=== PATIENT | male | born 1975 | race Two or more races ===

== ENCOUNTER 2016-10-11 16:04 | Emergency (ER) | payer SELFPAY ==
[2016-10-11 16:11] VITALS: BP 120/80; PULSE 96; TEMP 98.9; BMI 23.6
[2016-10-11] MEDS ORDERED: KETOROLAC TROMETHAMINE 30 MG/1 ML VIAL IM ONE (16:32)
--- NOTE | 2016-10-11 16:38 | PDOC ---
History of Present Illness - General Chief Complaint: Pain Stated Complaint: PAIN Time Seen by Provider: 10/11/16 16:26 History Source: Patient Exam Limitations: No Limitations - History of Present Illness Initial Comments: 10/11/16 16:33 41 yr male c/o right hip to right thigh and knee pain for 3 weeks. Pt denies injury states pain worse with getting onto and off the back of the [employer] truck. Pt denies back pain, neg abd pain. neg nvd neg urinary or bowel complaints. Past History - Past Medical History Allergies/Adverse Reactions: Allergies Allergy/AdvReac Type Severity Reaction Status Date / Time No Known Allergies Allergy Verified 10/11/16 16:08 Home Medications: Ambulatory Orders Naproxen [Naprosyn -] 500 mg PO BID PRN #14 tablet 10/11/16 Other medical history: none - Immunization History Immunization Up to Date: Yes - Psycho/Social/Smoking Cessation Hx Anxiety: No Suicidal Ideation: No Smoking History: Current every day smoker Have you smoked in the past 12 months: Yes Number of Cigarettes Smoked Daily: 8 Information on smoking cessation initiated: Yes 'Breaking Loose' booklet given: 10/11/16 Hx Alcohol Use: Yes Drug/Substance Use Hx: Yes Substance Use Type: Alcohol *Physical Exam - Vital Signs Last Vital Signs Temp Pulse Resp BP Pulse Ox 98.9 F 96 H 16 120/80 100 10/11/16 16:08 10/11/16 16:08 10/11/16 16:08 10/11/16 16:08 10/11/16 16:08 - Physical Exam General Appearance: Yes: Nourished, Appropriately Dressed HEENT: positive: EOMI, YAS Neck: positive: Supple Respiratory/Chest: positive: Lungs Clear, Normal Breath Sounds Cardiovascular: positive: Regular Rhythm, Regular Rate Gastrointestinal/Abdominal: positive: Normal Bowel Sounds, Soft. negative: Tender Musculoskeletal: positive: Normal Inspection Extremity: positive: Normal Capillary Refill, Normal Inspection, Normal Range of Motion, Other (pain repordiced with right hip abduction and flexion, ttp right patella, no swelling or deformity ) Integumentary: positive: Normal Color, Dry, Warm Neurologic: positive: Fully Oriented, Alert, Normal Mood/Affect, Normal Response , Motor Strength 5/5 ED Treatment Course - RADIOLOGY Radiology Studies Ordered: Category Date Time Status HIP & PELVIS-RIGHT [RAD] Stat Radiology 10/11/16 16:32 Ordered KNEE 3 POS-RIGHT [RAD] Stat Radiology 10/11/16 16:32 Ordered Medical Decision Making - Medical Decision Making 10/11/16 16:35 cc: pain to right hip, thigh and knee for 3 weeks neg abd pain neg back pain, neg saddle anesthesia pain reproduced with right hip abduction and flexion will get xrays toradol for pain *DC/Admit/Observation/Transfer Diagnosis at time of Disposition: Hip pain, right - Discharge Dispostion Disposition: HOME Condition at time of disposition: Good - Prescriptions Prescriptions: Naproxen [Naprosyn -] 500 mg PO BID PRN #14 tablet PRN Reason: Pain - Referrals Referrals: Heriberto Haddad MD [Staff Physician] - [facility] [Provider Group] - Patient Instructions Additional Instructions: follow with the orthopedist for follow up, call tomorrow to set up appointment for this week or next week take naprosyn for pain as directed avoid heavy lifting or bending which may worsen your pain return to ER for any worsening symptoms also follow with [facility] for a primary care doctor
[2016-10-11] MEDS ORDERED: KETOROLAC TROMETHAMINE 30 MG/1 ML VIAL ONE (16:46)
== END 2016-10-11 17:34 | disposition home or self-care (01) ==
LOC: JERFT 16:04
PROC: 3E0233Z Introduction of Anti-inflammatory into Muscle, Percutaneous Approach (ICD-10-PCS; principal; 2016-10-11)
DX: M25.551 Pain in right hip (principal); F17.210 Nicotine dependence, cigarettes, uncomplicated
CPT/HCPCS: 73523-TC; 73562-TC-RT; 99281-25

== ENCOUNTER 2017-03-14 12:42 | Emergency (ER) | payer BC ==
[2017-03-14 13:04] VITALS: BP 126/86; PULSE 106; TEMP 98.3; BMI 24.3
--- NOTE | 2017-03-14 15:35 | PDOC ---
History of Present Illness - General Chief Complaint: Pain Stated Complaint: RT SIDE PAIN Time Seen by Provider: 03/14/17 15:34 Past History - Past Medical History Allergies/Adverse Reactions: Allergies Allergy/AdvReac Type Severity Reaction Status Date / Time No Known Allergies Allergy Verified 03/14/17 13:01 Home Medications: Ambulatory Orders Cyclobenzaprine HCl [Flexeril -] 10 mg PO HS #10 tablet 03/14/17 Ibuprofen 800 mg PO TID #30 tablet 03/14/17 COPD: No - Immunization History Immunization Up to Date: Yes - Suicide/Smoking/Psychosocial Hx Smoking History: Current every day smoker Have you smoked in the past 12 months: Yes Number of Cigarettes Smoked Daily: 8 Information on smoking cessation initiated: Yes 'Breaking Loose' booklet given: 03/14/17 Hx Alcohol Use: No Drug/Substance Use Hx: No Substance Use Type: Alcohol *Physical Exam - Vital Signs Last Vital Signs Temp Pulse Resp BP Pulse Ox 98.3 F 106 H 18 126/86 100 03/14/17 13:01 03/14/17 13:01 03/14/17 13:01 03/14/17 13:01 03/14/17 13:01 *DC/Admit/Observation/Transfer Diagnosis at time of Disposition: Leg pain, right Sciatica Qualifiers: Laterality: right Qualified Code(s): M54.31 - Sciatica, right side - Discharge Dispostion Disposition: HOME Condition at time of disposition: Good Admit: No - Referrals Referrals: Michael Hansen MD [Staff Physician] - - Patient Instructions Printed Discharge Instructions: DI for Sciatica Additional Instructions: You have sciatica. Please take 800 mg of ibuprofen 3 times a day to help with her pain. Please take this medication with food. Your also prescribed Flexeril. Please take this medication at night as it may make you sleepy. Do gentle stretching exercises of your leg and back to help with her pain. You may use heat to the affected area. Please follow-up with or so this week. Return to the emergency department if you have worsening pain, changes in the way walk, loss of bladder or bowel control, numbness and tingling, or any changes in your symptoms. - Post Discharge Activity Forms/Work/School Notes: Back to Work
[2017-03-14] MEDS ORDERED: KETOROLAC TROMETHAMINE 60 MG/2 ML VIAL IM ONE (15:51)
[2017-03-14] MEDS ORDERED: KETOROLAC TROMETHAMINE 60 MG/2 ML VIAL ONE (15:55)
== END 2017-03-14 16:16 | disposition home or self-care (01) ==
LOC: JERFT 12:42
PROC: 3E0233Z Introduction of Anti-inflammatory into Muscle, Percutaneous Approach (ICD-10-PCS; principal; 2017-03-14)
DX: M54.31 Sciatica, right side (principal); F17.210 Nicotine dependence, cigarettes, uncomplicated
CPT/HCPCS: 99281-25

== ENCOUNTER 2017-06-02 22:20 | Inpatient (IN) | payer BC ==
[2017-06-02 23:08] VITALS: BMI 26.6
--- NOTE | 2017-06-02 23:38 | HP ---
CIWA Score - CIWA Score Nausea/Vomitin Muscle Tremors: 4-Moderate,w/Arms Extend Anxiety: 4-Mod. Anxious/Guarded Agitation: 4-Moderately Restless Paroxysmal Sweats: 3 Orientation: 0-Oriented Tacttile Disturbances: 0-None Auditory Disturbances: 0-None Visual Disturbances: 0-None Headache: 0-None Present CIWA-Ar Total Score: 18 Admission ROS BHS - HPI Chief Complaint: C/O WITHDRAWAL SX'S. SEEKING DETOX TXMENT FOR ALCOHOL DEPENDENCE. Allergies/Adverse Reactions: Allergies Allergy/AdvReac Type Severity Reaction Status Date / Time No Known Allergies Allergy Verified 03/14/17 13:01 History of Present Illness: 42 Y.O. MALE WITH ALCOHOLISM HERE FOR DETOX. THIS IS HIS FIRST TIME HERE AND FIRST TIME IN INPATIENT TXMENT. SELF REFERRED. DENIES LEGALS. DENIES ANY SIGNIFICANT PERIOD OF CLEAN TIME. Exam Limitations: No Limitations - Ebola screening Have you traveled outside of the country in the last 21 days: No Have you had contact with anyone from an Ebola affected area: No Have you been sick,other than usual withdrawal symptoms: No Do you have a fever: No - Review of Systems Constitutional: Chills, Loss of Appetite, Night Sweats EENT: reports: No Symptoms Reported Respiratory: reports: No Symptoms reported Cardiac: reports: No Symptoms Reported GI: reports: Diarrhea : reports: No Symptoms Reported Musculoskeletal: reports: No Symptoms Reported Integumentary: reports: No Symptoms Reported Neuro: reports: No Symptoms reported Endocrine: reports: No Symptoms Reported Hematology: reports: No Symptoms Reported Psychiatric: reports: Anxious Other Systems: Reviewed and Negative Patient History - Patient Medical History Hx Anemia: No Hx Asthma: No Hx Chronic Obstructive Pulmonary Disease (COPD): No Hx Cancer: No Hx Cardiac Disorders: No Hx Congestive Heart Failure: No Hx Hypertension: No Hx Hypercholesterolemia: No HX Cerebrovascular Accident: No Hx Seizures: No Hx Dementia: No Hx Diabetes: No Hx Gastrointestinal Disorders: No Hx Liver Disease: Yes (CIRROHSIS) Hx Genitourinary Disorders: No Hx Sexually Transmitted Disorders: No Hx Renal Disease (ESRD): No Hx Thyroid Disease: No Hx Human Immunodeficiency Virus (HIV): No Hx Hepatitis C: No Hx Depression: No Hx Suicide Attempt: No Hx Bipolar Disorder: No Hx Schizophrenia: No Other Medical History: ANXIETY - Patient Surgical History Past Surgical History: No - PPD History Previous Implant?: Yes Documented Results: Negative w/o proof Implanted On Prior [facility] Admission?: No PPD to be Administered?: Yes - Smoking Cessation Smoking history: Current every day smoker Have you smoked in the past 12 months: Yes Aproximately how many cigarettes per day: 8 Cigars Per Day: 0 Hx Chewing Tobacco Use: No Initiated information on smoking cessation: Yes 'Breaking Loose' booklet given: 06/02/17 - Substance & Tx. History Hx Alcohol Use: Yes Hx Substance Use: Yes Substance Use Type: Alcohol Hx Substance Use Treatment: No - Substances Abused BEER Route: Oral Frequency: Daily Amount used: 8- 12 OZ Age of first use: 16 Date of Last Use: 06/02/17 Family Disease History - Family Disease History Family Disease History: Diabetes: Grandparent (GRANDMOTHER ), Other: Father (ALCOHOLIC) Admission Physical Exam S - Vital Signs Vital Signs: Vital Signs - 24 hr 06/02/17 23:07 Temperature 97.6 F Pulse Rate 116 H Respiratory 20 Rate Blood Pressure 135/76 - Physical General Appearance: Yes: Appropriately Dressed, Alcohol on Breath, Tremorous, Anxious HEENTM: Yes: EOMI, Normocephalic, Normal Voice, YAS, Pharynx Normal Respiratory: Yes: Chest Non-Tender, Lungs Clear, Normal Breath Sounds, No Respiratory Distress, No Accessory Muscle Use Neck: Yes: No masses,lesions,Nodules, Supple, Trachea in good position Breast: Yes: Breast Exam Deferred Cardiology: Yes: Regular Rhythm, S1, S2, Tachycardia Abdominal: Yes: Normal Bowel Sounds, Non Tender, Soft Genitourinary: Yes: Within Normal Limits (NO C/O) Back: Yes: Normal Inspection Musculoskeletal: Yes: full range of Motion, Gait Steady Extremities: Yes: Normal Capillary Refill, Normal Range of Motion, Non-Tender, Tremors 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, Fully Oriented, Alert, Motor Strength 5/5 Integumentary: Yes: Normal Color, Dry, Warm Lymphatic: Yes: Within Normal Limits - Diagnostic (1) Alcohol dependence with uncomplicated withdrawal Current Visit: Yes Status: Chronic (2) Nicotine dependence Current Visit: Yes Status: Chronic Qualifiers: Nicotine product type: cigarettes Substance use status: uncomplicated Qualified Code(s): F17.210 - Nicotine dependence, cigarettes, uncomplicated Cleared for Admission BHS - Detox or Rehab B[facility] Level of Care: Medically Managed Detox Regimen/Protocol: Librium Claeared for Rehab Admission: No [facility] Breath Alcohol Content Breath Alcohol Content: 0.297 Urine Drug Screen - Results Drug Screen Negative: Yes
[2017-06-02] MEDS ORDERED: MAG HYDROX/AL HYDROX/SIMETH 30 ML UNIT-DOSE CUP PO PRN (23:48)
[2017-06-02] MEDS ORDERED: chlordiazePOXIDE HCL 25 MG CAPSULE PO PRN (23:48)
[2017-06-02] MEDS ORDERED: MAGNESIUM CITRATE 300 ML BOTTLE PO PRN (23:48)
[2017-06-02] MEDS ORDERED: LOPERAMIDE HCL 2 MG CAPSULE PO PRN (23:48)
[2017-06-02] MEDS ORDERED: MENTHOL/PHENOL 1 EACH UD MM PRN (23:48)
[2017-06-02] MEDS ORDERED: ACETAMINOPHEN 325 MG TABLET (FP) PO PRN (23:48)
[2017-06-02] MEDS ORDERED: MAGNESIUM HYDROX 2400MG/30ML ORAL SUSPENSION 30 ML CUP PO PRN (23:48)
[2017-06-02] MEDS ORDERED: guaiFENesin/D-METHORPHAN HB 10 ML UNIT-DOSE CUPS PO PRN (23:48)
[2017-06-02] MEDS ORDERED: P-EPHED 60MG/TRIPROLIDI 2.5MG TABLET PO PRN (23:48)
[2017-06-02] MEDS ORDERED: hydrOXYzine PAMOATE 50 MG CAPSULE (FP) PO PRN (23:48)
[2017-06-03] MEDS: chlordiazePOXIDE HCL 25 MG CAPSULE PO SCH ×5 (01:30→22:17)
[2017-06-03] MEDS: NICOTINE POLACRILEX 2 MG GUM BC PRN (01:30)
--- NOTE | 2017-06-03 09:33 | EKG ---
Test Reason : Blood Pressure : / mmHG Vent. Rate : 101 BPM Atrial Rate : 101 BPM P-R Int : 156 ms QRS Dur : 092 ms QT Int : 364 ms P-R-T Axes : 045 012 041 degrees QTc Int : 471 ms SINUS TACHYCARDIA OTHERWISE NORMAL ECG NO PREVIOUS ECGS AVAILABLE Confirmed by EVELIO GUERRERO MD ([id number]) on 06/03/2017 9:32:54 AM Referred By: Confirmed By:EVELIO GUERRERO MD
[2017-06-03 09:49] LABS: HEMATOCRIT 40.2 % (35.4-49); HEMOGLOBIN 13.8 GM/dL (11.7-16.9); MCH 32.7 pg (25.7-33.7); MCHC 34.3 g/dl (32.0-35.9); MEAN CELL VOLUME 95.4 fl (80-96); MEAN PLT VOLUME 8.1 fl (7.5-11.1); PLATELET COUNT 197 K/MM3 (134-434); RBC 4.21 M/mm3 (4.00-5.60); RDW 13.4 % (11.9-15.9); WHITE BLOOD COUNT 6.6 K/mm3 (4.0-10.0)
[2017-06-03 09:54] LABS: ANION GAP 7 (8-16); BILIRUBIN,TOTAL 0.2 mg/dL (0.2-1.0); BLOOD UREA NITROGEN 8 mg/dL (7-18); CHLORIDE 105 mmol/L (98-107); CO2 32 mmol/L (21-32); CREATININE 0.8 mg/dL (0.7-1.3); GLUCOSE,RANDOM 83 mg/dL (74-106); POTASSIUM 3.4 mmol/L (3.5-5.1); SGOT/AST 96 U/L (15-37); SGPT/ALT 105 U/L (12-78); SODIUM 144 mmol/L (136-145); TOT PROT 6.2 g/dl (6.4-8.2); URINE APPEARANCE CLEAR; URINE BILIRUBIN NEGATIVE (<2.0 mg/dL); URINE BLOOD NEGATIVE (NEGATIVE); URINE COLOR YELLOW; URINE GLUCOSE (UA) NEGATIVE (NEGATIVE); URINE KETONE NEGATIVE (NEGATIVE); URINE LEUK ESTERASE NEGATIVE (NEGATIVE); URINE NITRITE NEGATIVE (NEGATIVE); URINE PROTEIN NEGATIVE (NEGATIVE); URINE UROBILINOGEN NEGATIVE mg/dL (0.2-1.0)
[2017-06-03 09:55] LABS: ALK PHOS 90 U/L (45-117)
[2017-06-03] MEDS: PRENATAL VITAMINS W/ FOLIC ACID TABLET (FP) PO SCH (10:31)
[2017-06-03] MEDS: NICOTINE 14 MG/24 HOURS TOPICAL PATCH TD SCH (10:31)
--- NOTE | 2017-06-03 11:52 | CONSULT ---
[facility] Psychiatric Consult - Data Date of interview: 06/03/17 Admission source: [facility] Identifying data: First admission to [facility] for this 42 y/o [place] male seeking detox treatment on for alcohol dependence.Patient is single ( common-law spouse),a father of two (one biological + one step child),currently unemployed (seasonal worker) and deprived of any source of income. Substance Abuse History: Confirmed by patient in this interview.Details in current [facility] report included here : Smoking history: Current every day smoker. Have you smoked in the past 12 months: Yes. Aproximately how many cigarettes per day: 8. Cigars Per Day: 0. Hx Chewing Tobacco Use: No. Initiated information on smoking cessation: Yes. 'Breaking Loose' booklet given: . - Substance & Tx. History. Hx Alcohol Use: Yes. Hx Substance Use: Yes. Substance Use Type: Alcohol. Hx Substance Use Treatment: No. - Substances Abused. BEER. Route: Oral. Frequency: Daily. Amount used: 8- 12 OZ. Age of first use: 16. Date of Last Use: 06/02/17 Medical History: Cirrhosis of the liver,chronic joint pain and sciatica. Psychiatric History: Patient denies. Physical/Sexual Abuse/Trauma History: Patient denies. Additional Comment: Drug Screen is negative. Mental Status Exam - Mental Status Exam Alert and Oriented to: Time, Place, Person Cognitive Function: Good Patient Appearance: Well Groomed Mood: Hopeful, Euthymic Affect: Appropriate, Normal Range Patient Behavior: Fatigued, Appropriate, Cooperative Speech Pattern: Clear (bilingual) Voice Loudness: Normal Thought Process: Intact, Goal Oriented Thought Disorder: Not Present Hallucinations: Denies Suicidal Ideation: Denies Homicidal Ideation: Denies Insight/Judgement: Poor Sleep: Well Appetite: Good Muscle strength/Tone: Normal Gait/Station: Normal Psychiatric Findings - Problem List ([place] 1, 2,3) (1) Alcohol dependence with uncomplicated withdrawal Current Visit: Yes Status: Acute (2) Nicotine dependence Current Visit: Yes Status: Acute - Initial Treatment Plan Initial Treatment Plan: Psychoeducation.Detoxification.Observation.
--- NOTE | 2017-06-03 16:34 | PN ---
S CIWA - CIWA Score Nausea/Vomitin Muscle Tremors: 3 Anxiety: 4-Mod. Anxious/Guarded Agitation: 3 Paroxysmal Sweats: 3 Orientation: 0-Oriented Tacttile Disturbances: 3-Moderate Itch/Numb/Burn Auditory Disturbances: 0-None Visual Disturbances: 0-None Headache: 0-None Present CIWA-Ar Total Score: 19 BHS Progress Note (SOAP) Subjective: Tremors, Nausea, Body Aches, Sweating. Objective: PATIENT A & O X 3, OBSERVED AMBULATING ON UNIT. NO ACUTE DISTRESS. 06/03/17 16:31 Vital Signs Temperature 96.4 F L 06/03/17 09:14 Pulse Rate 89 06/03/17 09:14 Respiratory Rate 20 06/03/17 09:14 Blood Pressure 120/80 06/03/17 09:14 O2 Sat by Pulse Oximetry (%) Laboratory Tests 06/03/17 06/03/17 06/03/17 08:00 08:00 08:00 WBC 6.6 RBC 4.21 Hgb 13.8 Hct 40.2 MCV 95.4 MCH 32.7 MCHC 34.3 RDW 13.4 Plt Count 197 MPV 8.1 Sodium 144 Potassium 3.4 L Chloride 105 Carbon Dioxide 32 Anion Gap 7 L BUN 8 Creatinine 0.8 Creat Clearance w eGFR > 60 Random Glucose 83 Calcium 8.0 L Total Bilirubin 0.2 AST 96 H ALT 105 H Alkaline Phosphatase 90 Total Protein 6.2 L Albumin 3.0 L Urine Color Urine Appearance Urine pH Ur Specific [place] Urine Protein Urine Glucose (UA) Urine Ketones Urine Blood Urine Nitrite Urine Bilirubin Urine Urobilinogen Ur Leukocyte Esterase RPR Titer Nonreactive 06/03/17 08:00 WBC RBC Hgb Hct MCV MCH MCHC RDW Plt Count MPV Sodium Potassium Chloride Carbon Dioxide Anion Gap BUN Creatinine Creat Clearance w eGFR Random Glucose Calcium Total Bilirubin AST ALT Alkaline Phosphatase Total Protein Albumin Urine Color Yellow Urine Appearance Clear Urine pH 6.0 Ur Specific [place] 1.015 Urine Protein Negative Urine Glucose (UA) Negative Urine Ketones Negative Urine Blood Negative Urine Nitrite Negative Urine Bilirubin Negative Urine Urobilinogen Negative Ur Leukocyte Esterase Negative RPR Titer LABS NOTED. Assessment: 06/03/17 16:31 WITHDRAWAL SYMPTOMS. HYPOKALEMIA. 06/03/17 16:33 Plan: CONTINUE DETOX. K-DUR, 20 MEQ PO BID FOR LOW K LEVEL. INCREASE DAILY PO FLUID INTAKE.
[2017-06-03] MEDS: POTASSIUM CHLORIDE TABS 20 MEQ TABLET.ER (FP) PO SCH (17:07)
[2017-06-03] MEDS: THIAMINE HCL 100 MG TABLET (FP) PO SCH (22:17)
[2017-06-03] MEDS: MELATONIN 5 MG TABLETS PO PRN (22:17)
[2017-06-04] MEDS: chlordiazePOXIDE HCL 25 MG CAPSULE PO SCH ×3 (05:29→17:35)
[2017-06-04] MEDS: PRENATAL VITAMINS W/ FOLIC ACID TABLET (FP) PO SCH (10:38)
[2017-06-04] MEDS: POTASSIUM CHLORIDE TABS 20 MEQ TABLET.ER (FP) PO SCH ×2 (10:38→17:35)
[2017-06-04] MEDS: NICOTINE 14 MG/24 HOURS TOPICAL PATCH TD SCH (10:38)
[2017-06-04] MEDS: NICOTINE POLACRILEX 2 MG GUM BC PRN (11:04)
--- NOTE | 2017-06-04 17:04 | PN ---
[facility] CIWA - CIWA Score Nausea/Vomitin-No Nausea/No Vomiting Muscle Tremors: 3 Anxiety: 4-Mod. Anxious/Guarded Agitation: 4-Moderately Restless Paroxysmal Sweats: 3 Orientation: 0-Oriented Tacttile Disturbances: 2-Mild Itch/Numbness/Burn Auditory Disturbances: 0-None Visual Disturbances: 0-None Headache: 0-None Present CIWA-Ar Total Score: 16 BHS Progress Note (SOAP) Subjective: Sweating, Interrupted Sleep, Body Aches, Diarrhea, Tremors. Objective: PATIENT A & O X 3, OBSERVED AMBULATING ON UNIT. NO ACUTE DISTRESS. 06/04/17 17:03 Vital Signs Temperature 98.3 F 06/04/17 15:33 Pulse Rate 80 06/04/17 15:33 Respiratory Rate 20 06/04/17 15:33 Blood Pressure 116/85 06/04/17 15:33 O2 Sat by Pulse Oximetry (%) Laboratory Tests 06/03/17 06/03/17 06/03/17 08:00 08:00 08:00 WBC 6.6 RBC 4.21 Hgb 13.8 Hct 40.2 MCV 95.4 MCH 32.7 MCHC 34.3 RDW 13.4 Plt Count 197 MPV 8.1 Sodium 144 Potassium 3.4 L Chloride 105 Carbon Dioxide 32 Anion Gap 7 L BUN 8 Creatinine 0.8 Creat Clearance w eGFR > 60 Random Glucose 83 Calcium 8.0 L Total Bilirubin 0.2 AST 96 H ALT 105 H Alkaline Phosphatase 90 Total Protein 6.2 L Albumin 3.0 L Urine Color Urine Appearance Urine pH Ur Specific [place] Urine Protein Urine Glucose (UA) Urine Ketones Urine Blood Urine Nitrite Urine Bilirubin Urine Urobilinogen Ur Leukocyte Esterase RPR Titer Nonreactive 06/03/17 08:00 WBC RBC Hgb Hct MCV MCH MCHC RDW Plt Count MPV Sodium Potassium Chloride Carbon Dioxide Anion Gap BUN Creatinine Creat Clearance w eGFR Random Glucose Calcium Total Bilirubin AST ALT Alkaline Phosphatase Total Protein Albumin Urine Color Yellow Urine Appearance Clear Urine pH 6.0 Ur Specific [place] 1.015 Urine Protein Negative Urine Glucose (UA) Negative Urine Ketones Negative Urine Blood Negative Urine Nitrite Negative Urine Bilirubin Negative Urine Urobilinogen Negative Ur Leukocyte Esterase Negative RPR Titer LABS NOTED. Assessment: 06/04/17 17:03 WITHDRAWAL SYMPTOMS. HYPOKALEMIA. 06/04/17 17:03 Plan: CONTINUE DETOX. CONTINUE K-DUR. INCREASE DAILY PO FLUID INTAKE. PRN IMMODIUM FOR DIARRHEA.
[2017-06-04] MEDS: IBUPROFEN 400 MG TABLET (FP) PO PRN (19:16)
[2017-06-04] MEDS: THIAMINE HCL 100 MG TABLET (FP) PO SCH (22:35)
[2017-06-04] MEDS: chlordiazePOXIDE 5 MG CAPSULE PO SCH (22:36)
[2017-06-04] MEDS: MELATONIN 5 MG TABLETS PO PRN (22:37)
[2017-06-05] MEDS: IBUPROFEN 400 MG TABLET (FP) PO PRN ×2 (03:48→10:38)
[2017-06-05] MEDS: chlordiazePOXIDE 5 MG CAPSULE PO SCH ×3 (05:53→17:42)
[2017-06-05] MEDS: POTASSIUM CHLORIDE TABS 20 MEQ TABLET.ER (FP) PO SCH ×2 (10:36→17:44)
[2017-06-05] MEDS: NICOTINE 14 MG/24 HOURS TOPICAL PATCH TD SCH (10:36)
[2017-06-05] MEDS: PRENATAL VITAMINS W/ FOLIC ACID TABLET (FP) PO SCH (10:36)
--- NOTE | 2017-06-05 11:57 | PN ---
BHS Progress Note (SOAP) Subjective: sweats anxiety Objective: 06/05/17 11:56 Vital Signs Temperature 95.9 F L 06/05/17 11:23 Pulse Rate 65 06/05/17 11:23 Respiratory Rate 20 06/05/17 11:23 Blood Pressure 112/69 06/05/17 11:23 O2 Sat by Pulse Oximetry (%) [id number] ambulating no acute distress Assessment: 06/05/17 11:56 withdrawal sx Plan: continue detox increase fluids d/c in am
[2017-06-05] MEDS ORDERED: CYCLOBENZAPRINE HCL 10 MG TABLET (FP) PO PRN (17:57)
[2017-06-05] MEDS: THIAMINE HCL 100 MG TABLET (FP) PO SCH (22:41)
[2017-06-05] MEDS: chlordiazePOXIDE HCL 10 MG CAPSULE PO SCH (22:41)
[2017-06-06] MEDS: chlordiazePOXIDE HCL 10 MG CAPSULE PO SCH ×2 (05:48→11:01)
[2017-06-06] MEDS: IBUPROFEN 400 MG TABLET (FP) PO PRN ×2 (05:49→11:00)
[2017-06-06 09:38] VITALS: BP 124/89; PULSE 91; TEMP 97.4
[2017-06-06] MEDS: PRENATAL VITAMINS W/ FOLIC ACID TABLET (FP) PO SCH (10:50)
[2017-06-06] MEDS: NICOTINE 14 MG/24 HOURS TOPICAL PATCH TD SCH (10:51)
[2017-06-06] MEDS: POTASSIUM CHLORIDE TABS 20 MEQ TABLET.ER (FP) PO SCH (11:01)
--- NOTE | 2017-06-06 15:00 | PN ---
BHS Progress Note (SOAP) Subjective: Patient reports mild anxiety and tremors (improved since when he first arrived for Detox). Objective: PATIENT A & O X 3, OBSERVED AMBULATING ON UNIT. NO ACUTE DISTRESS. 06/06/17 14:58 Vital Signs Temperature 97.4 F L 06/06/17 09:35 Pulse Rate 91 H 06/06/17 09:35 Respiratory Rate 18 06/06/17 09:35 Blood Pressure 124/89 06/06/17 09:35 O2 Sat by Pulse Oximetry (%) Laboratory Tests 06/03/17 06/03/17 06/03/17 08:00 08:00 08:00 WBC 6.6 RBC 4.21 Hgb 13.8 Hct 40.2 MCV 95.4 MCH 32.7 MCHC 34.3 RDW 13.4 Plt Count 197 MPV 8.1 Sodium 144 Potassium 3.4 L Chloride 105 Carbon Dioxide 32 Anion Gap 7 L BUN 8 Creatinine 0.8 Creat Clearance w eGFR > 60 Random Glucose 83 Calcium 8.0 L Total Bilirubin 0.2 AST 96 H ALT 105 H Alkaline Phosphatase 90 Total Protein 6.2 L Albumin 3.0 L Urine Color Urine Appearance Urine pH Ur Specific [place] Urine Protein Urine Glucose (UA) Urine Ketones Urine Blood Urine Nitrite Urine Bilirubin Urine Urobilinogen Ur Leukocyte Esterase RPR Titer Nonreactive 06/03/17 08:00 WBC RBC Hgb Hct MCV MCH MCHC RDW Plt Count MPV Sodium Potassium Chloride Carbon Dioxide Anion Gap BUN Creatinine Creat Clearance w eGFR Random Glucose Calcium Total Bilirubin AST ALT Alkaline Phosphatase Total Protein Albumin Urine Color Yellow Urine Appearance Clear Urine pH 6.0 Ur Specific [place] 1.015 Urine Protein Negative Urine Glucose (UA) Negative Urine Ketones Negative Urine Blood Negative Urine Nitrite Negative Urine Bilirubin Negative Urine Urobilinogen Negative Ur Leukocyte Esterase Negative RPR Titer LABS NOTED. Assessment: 06/06/17 14:59 COMPLETION OF DETOX REGIMEN. 06/06/17 14:59 Plan: PATIENT SCHEDULED FOR DISCHARGE FROM DETOX UNIT TODAY.
--- NOTE | 2017-06-06 15:04 | DS ---
[facility] Detox Discharge Summary Admission Date: 06/02/17 Discharge Date: 06/06/17 - History Present History: Alcohol Dependence Additional Comments: NO BEDS ARE CURRENTLY AVAILABLE AT [facility] ([place] PATIENT WILL GO HOME FOR TODAY, THEN [facility]OMOR[facility] AM FOR POSSIBLE ADMISSION AT THAT TIME. PATIENT WAS DISCHARGED FROM DETOX UNIT IN STABLE MEDICAL CONDITION. Pertinent Past History: Nicotine Dependence, Hypokalemia, Anxiety. - Physical Exam Results Vital Signs: Vital Signs Temperature 97.4 F L 06/06/17 09:35 Pulse Rate 91 H 06/06/17 09:35 Respiratory Rate 18 06/06/17 09:35 Blood Pressure 124/89 06/06/17 09:35 O2 Sat by Pulse Oximetry (%) Pertinent Admission Physical Exam Findings: WITHDRAWAL SYMPTOMS. Vital Signs Temperature 97.4 F L 06/06/17 09:35 Pulse Rate 91 H 06/06/17 09:35 Respiratory Rate 18 06/06/17 09:35 Blood Pressure 124/89 06/06/17 09:35 O2 Sat by Pulse Oximetry (%) Laboratory Tests 06/03/17 06/03/17 06/03/17 08:00 08:00 08:00 WBC 6.6 RBC 4.21 Hgb 13.8 Hct 40.2 MCV 95.4 MCH 32.7 MCHC 34.3 RDW 13.4 Plt Count 197 MPV 8.1 Sodium 144 Potassium 3.4 L Chloride 105 Carbon Dioxide 32 Anion Gap 7 L BUN 8 Creatinine 0.8 Creat Clearance w eGFR > 60 Random Glucose 83 Calcium 8.0 L Total Bilirubin 0.2 AST 96 H ALT 105 H Alkaline Phosphatase 90 Total Protein 6.2 L Albumin 3.0 L Urine Color Urine Appearance Urine pH Ur Specific [place] Urine Protein Urine Glucose (UA) Urine Ketones Urine Blood Urine Nitrite Urine Bilirubin Urine Urobilinogen Ur Leukocyte Esterase RPR Titer Nonreactive 06/03/17 08:00 WBC RBC Hgb Hct MCV MCH MCHC RDW Plt Count MPV Sodium Potassium Chloride Carbon Dioxide Anion Gap BUN Creatinine Creat Clearance w eGFR Random Glucose Calcium Total Bilirubin AST ALT Alkaline Phosphatase Total Protein Albumin Urine Color Yellow Urine Appearance Clear Urine pH 6.0 Ur Specific [place] 1.015 Urine Protein Negative Urine Glucose (UA) Negative Urine Ketones Negative Urine Blood Negative Urine Nitrite Negative Urine Bilirubin Negative Urine Urobilinogen Negative Ur Leukocyte Esterase Negative RPR Titer LABS NOTED. - Treatment Hospital Course: Detox Protocol Followed, Detoxed Safely, Responded well, Discharged Condition Good, Rehab Referral Accepted Patient has Accepted a Rehab Referral to: [facility] ([place] . - Medication Discharge Medications: Ambulatory Orders NK [No Known Home Medication] 06/03/17 - Diagnosis (1) Alcohol dependence with uncomplicated withdrawal Status: Acute (2) Nicotine dependence Status: Acute Qualifiers: Nicotine product type: cigarettes Substance use status: uncomplicated Qualified Code(s): F17.210 - Nicotine dependence, cigarettes, uncomplicated (3) Hypokalemia Status: Acute - AMA Did Patient Leave Against Medical Advice: No
== END 2017-06-06 14:00 | disposition home or self-care (01) | DRG 897 ==
LOC: YASAS 22:20 → Y3N 23:27
PROVIDERS: ADMIT Internal Medicine; ATTEND Internal Medicine
PROC: HZ2ZZZZ Detoxification Services for Substance Abuse Treatment (ICD-10-PCS; principal; 2017-06-02)
DX: F10.230 Alcohol dependence with withdrawal, uncomplicated (principal); F17.210 Nicotine dependence, cigarettes, uncomplicated; F41.9 Anxiety disorder, unspecified; E87.6 Hypokalemia; K74.60 Unspecified cirrhosis of liver
CPT/HCPCS: 36415; 80053; 81003; 85027; 86593; 93005; 93010

== ENCOUNTER 2017-06-07 08:25 | Inpatient (IN) | payer BC ==
[2017-06-07 09:22] VITALS: BMI 27.8
[2017-06-07] MEDS ORDERED: MAGNESIUM CITRATE 300 ML BOTTLE PO PRN (10:52)
[2017-06-07] MEDS ORDERED: IBUPROFEN 400 MG TABLET (FP) PO PRN (10:52)
[2017-06-07] MEDS ORDERED: MENTHOL/PHENOL 1 EACH UD MM PRN (10:52)
[2017-06-07] MEDS ORDERED: MAGNESIUM HYDROX 2400MG/30ML ORAL SUSPENSION 30 ML CUP PO PRN (10:52)
[2017-06-07] MEDS ORDERED: P-EPHED 60MG/TRIPROLIDI 2.5MG TABLET PO PRN (10:52)
[2017-06-07] MEDS ORDERED: guaiFENesin/D-METHORPHAN HB 10 ML UNIT-DOSE CUPS PO PRN (10:52)
[2017-06-07] MEDS ORDERED: LOPERAMIDE HCL 2 MG CAPSULE PO PRN (10:52)
[2017-06-07] MEDS ORDERED: MAG HYDROX/AL HYDROX/SIMETH 30 ML UNIT-DOSE CUP PO PRN (10:52)
--- NOTE | 2017-06-07 10:52 | HP ---
[facility] Rehab Assess/Revision - Admission History Admitted to Rehab from: [facility] Date of Admission to Rehab: 06/07/2017 - Vital signs Vital Signs: Vital Signs Period Temp Pulse Resp BP Sys/Funk Pulse Ox Last 24 Hr 97 F 103 20 144/88 - Findings Detox History & Physical reviewed: Yes Concur with findings: Yes Inpatient Rehab Admission - Initial Determination Are CD services needed?: Yes Free of communicable disease: Yes Not in need of hospitalization: Yes - Rehab Admission Criteria Poor recovery environment: Yes Lacks judgement: Yes Patient is meeting Inpatient Rehab admission criteria:: Yes
--- NOTE | 2017-06-07 12:17 | HP ---
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 Smokes 8 cigaretes daily Psychiatric History: Denies history of previous psychiatric treatment Physical/Sexual Abuse/Trauma History: Denies history of emotional, physical or sexual abuse as well as DV relationship. No service Additional Comment: Reports history of 3 previous arrests on charges of drinking in public, DWI and driving with a suspended license Vital Signs: Vital Signs - 24 hr 06/07/17 09:16 Temperature 97 F L Pulse Rate 103 H Respiratory 20 Rate Blood Pressure 144/88 Allergies/Adverse Reactions: Allergies Allergy/AdvReac Type Severity Reaction Status Date / Time No Known Allergies Allergy Verified 06/07/17 09:23 Date of last physical exam: 06/02/17 Concur with the findings of this exam: Yes - Substance Abuse/Tx History Hx Alcohol Use: Yes Hx Substance Use: Yes Substance Use Type: Alcohol (Started drining alcohol at age 16, consumes 8-10x 12oz of beer daily. Lasr drank on 06/02/17), Marijuana (Started smoking marijuana at age 18, consumed a lot in the past but now cosumes 0.25 joints 1-3 times in the last 30 days. Last smoked on 06/02/17) Hx Substance Use Treatment: Yes (One recent inpt detox @ [facility] was his first inpatient treatment) Mental Status Exam - Mental Status Exam Alert and Oriented to: Time, Place, Person Cognitive Function: Fair Patient Appearance: Well Groomed Mood: Depressed (mildly) Affect: Normal Range Patient Behavior: Cooperative Speech Pattern: Clear Voice Loudness: Normal Thought Process: Intact, Goal Oriented Thought Disorder: Not Present Hallucinations: Denies Suicidal Ideation: Denies Homicidal Ideation: Denies Insight/Judgement: Fair Sleep: Poorly Appetite: Good Muscle strength/Tone: Normal Gait/Station: Normal Psychiatric Findings - Problem List ([place] 1, 2,3) (1) Alcohol dependence Current Visit: Yes Status: Acute (2) Cannabis abuse Current Visit: Yes Status: Acute (3) Nicotine dependence Current Visit: No Status: Chronic Qualifiers: (4) Substance induced mood disorder Current Visit: Yes Status: Acute (5) Substance-induced sleep disorder Current Visit: Yes Status: Acute (6) Sciatica Current Visit: No Status: Chronic Qualifiers: Laterality: right Qualified Code(s): M54.31 - Sciatica, right side - Initial Treatment Plan Initial Treatment Plan: 1) Start Belsomra 10 mg po HS prn for insomnia and Vistaril 50 mg po Q 4hrs prn for anxiety. 2) Repeat Chemistry profile. 3) Monitor progress
[2017-06-07] MEDS: NICOTINE 14 MG/24 HOURS TOPICAL PATCH TD SCH (12:47)
[2017-06-07] MEDS: POTASSIUM CHLORIDE TABS 20 MEQ TABLET.ER (FP) PO SCH ×2 (12:47→17:58)
[2017-06-07] MEDS: NICOTINE POLACRILEX 2 MG GUM BUC PRN (12:48)
--- NOTE | 2017-06-07 14:53 | PN ---
[facility] Progress Note Note: S; C/o pain (R) thigh area pelvis to anterior knee x 10 days. States treated in past with motrin and flexeril with relief. States pain is a "4-5" especially when trying to do sit-ups or getting out of bed. In no distress at this time. Vital Signs Period Temp Pulse Resp BP Sys/Funk Pulse Ox Last 24 Hr 97 F 103 20 144/88 O; A&Ox3. FROM of (R) hip and knee. No increased warmth or tenderness to area. Back non-tender upon palpation.Labs reviewed with patient. Ambulating without difficulty. Gait steady. Discussed elevated AST/ALT and low K+ levels. A: Pain (R) thigh area; Elevated liver enzymes.; Hypokalemia. P: Increase Motrin to 600 mg, Avoid sit-ups at this time, Review liver enzymes in relation to alcohol use. Continue potassium, as prescribed.
[2017-06-07] MEDS: hydrOXYzine PAMOATE 50 MG CAPSULE (FP) PO PRN ×2 (14:59→20:03)
[2017-06-07] MEDS: IBUPROFEN 600 MG TABLET (FP) PO PRN (15:04)
[2017-06-07] MEDS: THIAMINE HCL 100 MG TABLET (FP) PO SCH (22:34)
[2017-06-07] MEDS: MELATONIN 5 MG TABLETS PO PRN (22:51)
[2017-06-08] MEDS: hydrOXYzine PAMOATE 50 MG CAPSULE (FP) PO PRN ×4 (00:13→21:38)
[2017-06-08 09:56] LABS: ALBUMIN 3.1 g/dl (3.4-5.0); ANION GAP 5 (8-16); BILIRUBIN,TOTAL 0.3 mg/dL (0.2-1.0); BLOOD UREA NITROGEN 11 mg/dL (7-18); CALCIUM 8.7 mg/dL (8.5-10.1); CHLORIDE 109 mmol/L (98-107); CO2 28 mmol/L (21-32); CREATININE 0.9 mg/dL (0.7-1.3); GLUCOSE,RANDOM 102 mg/dL (74-106); POTASSIUM 4.3 mmol/L (3.5-5.1); SGOT/AST 42 U/L (15-37); SODIUM 142 mmol/L (136-145); TOT PROT 6.2 g/dl (6.4-8.2)
[2017-06-08 10:03] LABS: ALK PHOS 90 U/L (45-117); SGPT/ALT 78 U/L (12-78)
[2017-06-08] MEDS: POTASSIUM CHLORIDE TABS 20 MEQ TABLET.ER (FP) PO SCH ×2 (10:27→17:02)
[2017-06-08] MEDS: NICOTINE 14 MG/24 HOURS TOPICAL PATCH TD SCH (10:27)
[2017-06-08] MEDS: PRENATAL VITAMINS W/ FOLIC ACID TABLET (FP) PO SCH (10:27)
[2017-06-08] MEDS: IBUPROFEN 600 MG TABLET (FP) PO PRN ×2 (10:28→17:02)
[2017-06-08] MEDS: NICOTINE POLACRILEX 2 MG GUM BUC PRN (10:29)
[2017-06-08] MEDS: MELATONIN 5 MG TABLETS PO PRN (21:36)
[2017-06-08] MEDS: SUVOREXANT 10 MG TABLET PO PRN (21:37)
[2017-06-08] MEDS: THIAMINE HCL 100 MG TABLET (FP) PO SCH (21:37)
[2017-06-09] MEDS: IBUPROFEN 600 MG TABLET (FP) PO PRN ×3 (06:07→22:29)
[2017-06-09] MEDS: hydrOXYzine PAMOATE 50 MG CAPSULE (FP) PO PRN ×4 (06:15→22:29)
[2017-06-09] MEDS: PRENATAL VITAMINS W/ FOLIC ACID TABLET (FP) PO SCH (10:11)
[2017-06-09] MEDS: NICOTINE 14 MG/24 HOURS TOPICAL PATCH TD SCH (10:11)
[2017-06-09] MEDS: POTASSIUM CHLORIDE TABS 20 MEQ TABLET.ER (FP) PO SCH ×2 (10:11→22:29)
--- NOTE | 2017-06-09 14:48 | PN ---
[facility] Progress Note Note: Patient c/o of stabbing pain on the right hip radiating to the right knee. Reports in the morning has difficulty getting out bed d/t to pain. Vital Signs Period Temp Pulse Resp BP Sys/Funk Pulse Ox Last 24 Hr 97.3 F 87 18-18 125/79 Laboratory Last Values Sodium 142 mmol/L (136-145) 06/08/17 07:00 Potassium 4.3 mmol/L (3.5-5.1) D 06/08/17 07:00 Chloride 109 mmol/L (98-107) H 06/08/17 07:00 Carbon Dioxide 28 mmol/L (21-32) 06/08/17 07:00 Anion Gap 5 (8-16) L 06/08/17 07:00 BUN 11 mg/dL (7-18) D 06/08/17 07:00 Creatinine 0.9 mg/dL (0.7-1.3) 06/08/17 07:00 Creat Clearance w eGFR > 60 (>60) 06/08/17 07:00 Random Glucose 102 mg/dL (74-106) D 06/08/17 07:00 Calcium 8.7 mg/dL (8.5-10.1) 06/08/17 07:00 Total Bilirubin 0.3 mg/dL (0.2-1.0) D 06/08/17 07:00 AST 42 U/L (15-37) H D 06/08/17 07:00 ALT 78 U/L (12-78) D 06/08/17 07:00 Alkaline Phosphatase 90 U/L (45-117) 06/08/17 07:00 Total Protein 6.2 g/dl (6.4-8.2) L 06/08/17 07:00 Albumin 3.1 g/dl (3.4-5.0) L 06/08/17 07:00 HIV 1&2 Antibody Screen Negative 06/08/17 07:00 HIV P24 Antigen Negative 06/08/17 07:00 A/P Patient AOx3, in no apparent distress Full ROM on all extremites, no joint tenderness or effusion, + right hip pain No paresthesia No adventicious breath sounds, lungs clear throughout Plan: Ibuprofen 600mg PRN Licodocaine patch gabapentin 100mg TID daily ambulation continue to monitor Patient to follow up with PMD upon discharge
[2017-06-09] MEDS: NICOTINE POLACRILEX 2 MG GUM BUC PRN ×2 (15:11→22:30)
[2017-06-09] MEDS: LIDOCAINE 5% TOPICAL PATCH TP SCH (15:19)
[2017-06-09] MEDS: GABAPENTIN 100 MG CAPSULE (FP) PO SCH ×2 (15:19→22:29)
[2017-06-09] MEDS: THIAMINE HCL 100 MG TABLET (FP) PO SCH (22:29)
[2017-06-09] MEDS: LIDOCAINE PATCH REMOVAL MC SCH (22:29)
[2017-06-09] MEDS: MELATONIN 5 MG TABLETS PO PRN (22:29)
[2017-06-09] MEDS: SUVOREXANT 10 MG TABLET PO PRN (23:53)
[2017-06-10] MEDS: IBUPROFEN 600 MG TABLET (FP) PO PRN (06:05)
[2017-06-10] MEDS: NICOTINE POLACRILEX 2 MG GUM BUC PRN ×4 (06:06→21:48)
[2017-06-10] MEDS: GABAPENTIN 100 MG CAPSULE (FP) PO SCH ×3 (06:06→21:46)
[2017-06-10] MEDS: hydrOXYzine PAMOATE 50 MG CAPSULE (FP) PO PRN ×4 (06:06→21:46)
[2017-06-10] MEDS: PRENATAL VITAMINS W/ FOLIC ACID TABLET (FP) PO SCH (10:19)
[2017-06-10] MEDS: NICOTINE 14 MG/24 HOURS TOPICAL PATCH TD SCH (10:19)
[2017-06-10] MEDS: LIDOCAINE 5% TOPICAL PATCH TP SCH (10:19)
[2017-06-10] MEDS: POTASSIUM CHLORIDE TABS 20 MEQ TABLET.ER (FP) PO SCH ×2 (10:19→17:04)
--- NOTE | 2017-06-10 13:10 | PN ---
S Progress Note Note: Patient continues with pain to right knee. Pain sharp and level 9/10. Continues with Gabapentin, Ibuprofen and Lidocaine for pain. States relief mild but continues to c/o right knee pain. Ext: +ROM, no swelling of extremities. Ambulates without difficulty or device. A/P: right knee pain. Will increase Ibuprofen to 800mg every 8 hr PRN and continue to monitor.
[2017-06-10] MEDS: IBUPROFEN 400 MG TABLET (FP) PO PRN ×2 (14:16→23:48)
[2017-06-10] MEDS: MELATONIN 5 MG TABLETS PO PRN (21:46)
[2017-06-10] MEDS: THIAMINE HCL 100 MG TABLET (FP) PO SCH (21:47)
[2017-06-10] MEDS: SUVOREXANT 10 MG TABLET PO PRN (21:47)
[2017-06-10] MEDS: LIDOCAINE PATCH REMOVAL MC SCH (22:05)
[2017-06-11] MEDS: GABAPENTIN 100 MG CAPSULE (FP) PO SCH ×3 (06:28→21:54)
[2017-06-11] MEDS: IBUPROFEN 400 MG TABLET (FP) PO PRN ×3 (06:29→23:28)
[2017-06-11] MEDS: hydrOXYzine PAMOATE 50 MG CAPSULE (FP) PO PRN ×4 (06:29→23:29)
[2017-06-11] MEDS: NICOTINE POLACRILEX 2 MG GUM BUC PRN ×4 (06:30→21:55)
[2017-06-11] MEDS: NICOTINE 14 MG/24 HOURS TOPICAL PATCH TD SCH (09:45)
[2017-06-11] MEDS: LIDOCAINE 5% TOPICAL PATCH TP SCH (09:45)
[2017-06-11] MEDS: PRENATAL VITAMINS W/ FOLIC ACID TABLET (FP) PO SCH (09:45)
[2017-06-11] MEDS: POTASSIUM CHLORIDE TABS 20 MEQ TABLET.ER (FP) PO SCH ×2 (09:45→17:54)
[2017-06-11] MEDS: ACETAMINOPHEN 325 MG TABLET (FP) PO PRN ×2 (10:44→17:54)
[2017-06-11] MEDS: LIDOCAINE PATCH REMOVAL MC SCH (21:53)
[2017-06-11] MEDS: THIAMINE HCL 100 MG TABLET (FP) PO SCH (21:53)
[2017-06-11] MEDS: SUVOREXANT 10 MG TABLET PO PRN (23:27)
[2017-06-11] MEDS: MELATONIN 5 MG TABLETS PO PRN (23:27)
[2017-06-12] MEDS: GABAPENTIN 100 MG CAPSULE (FP) PO SCH ×3 (06:29→22:23)
[2017-06-12] MEDS: ACETAMINOPHEN 325 MG TABLET (FP) PO PRN ×2 (06:29→15:45)
[2017-06-12] MEDS: hydrOXYzine PAMOATE 50 MG CAPSULE (FP) PO PRN ×4 (06:30→20:07)
[2017-06-12] MEDS: LIDOCAINE 5% TOPICAL PATCH TP SCH (10:30)
[2017-06-12] MEDS: PRENATAL VITAMINS W/ FOLIC ACID TABLET (FP) PO SCH (10:31)
[2017-06-12] MEDS: POTASSIUM CHLORIDE TABS 20 MEQ TABLET.ER (FP) PO SCH ×2 (10:31→19:00)
[2017-06-12] MEDS: NICOTINE 14 MG/24 HOURS TOPICAL PATCH TD SCH (10:31)
[2017-06-12] MEDS: IBUPROFEN 400 MG TABLET (FP) PO PRN ×2 (10:32→20:06)
[2017-06-12] MEDS: NICOTINE POLACRILEX 2 MG GUM BUC PRN ×5 (10:32→22:25)
[2017-06-12] MEDS: LIDOCAINE PATCH REMOVAL MC SCH (22:23)
[2017-06-12] MEDS: THIAMINE HCL 100 MG TABLET (FP) PO SCH (22:23)
[2017-06-12] MEDS: MELATONIN 5 MG TABLETS PO PRN (22:25)
[2017-06-12] MEDS: SUVOREXANT 10 MG TABLET PO PRN (22:25)
[2017-06-13] MEDS: IBUPROFEN 400 MG TABLET (FP) PO PRN ×3 (03:57→21:54)
[2017-06-13] MEDS: GABAPENTIN 100 MG CAPSULE (FP) PO SCH ×3 (06:14→21:54)
[2017-06-13] MEDS: NICOTINE POLACRILEX 2 MG GUM BUC PRN ×3 (06:16→10:41)
[2017-06-13] MEDS: hydrOXYzine PAMOATE 50 MG CAPSULE (FP) PO PRN ×4 (06:17→21:54)
[2017-06-13] MEDS: ACETAMINOPHEN 325 MG TABLET (FP) PO PRN (08:33)
[2017-06-13] MEDS: NICOTINE 14 MG/24 HOURS TOPICAL PATCH TD SCH (10:36)
[2017-06-13] MEDS: PRENATAL VITAMINS W/ FOLIC ACID TABLET (FP) PO SCH (10:36)
[2017-06-13] MEDS: POTASSIUM CHLORIDE TABS 20 MEQ TABLET.ER (FP) PO SCH ×2 (10:36→17:22)
[2017-06-13] MEDS ORDERED: PT OWN MED DRAWER 7, Y5N ONE (10:38)
[2017-06-13] MEDS: LIDOCAINE 5% TOPICAL PATCH TP SCH (10:39)
[2017-06-13] MEDS: MELATONIN 5 MG TABLETS PO PRN (21:54)
[2017-06-13] MEDS: SUVOREXANT 10 MG TABLET PO PRN (21:54)
[2017-06-13] MEDS: THIAMINE HCL 100 MG TABLET (FP) PO SCH (21:55)
[2017-06-13] MEDS: LIDOCAINE PATCH REMOVAL MC SCH (22:22)
[2017-06-14] MEDS: GABAPENTIN 100 MG CAPSULE (FP) PO SCH ×4 (06:13→22:16)
[2017-06-14] MEDS: IBUPROFEN 400 MG TABLET (FP) PO PRN ×3 (06:13→22:16)
[2017-06-14] MEDS: hydrOXYzine PAMOATE 50 MG CAPSULE (FP) PO PRN ×3 (10:14→20:21)
[2017-06-14] MEDS: POTASSIUM CHLORIDE TABS 20 MEQ TABLET.ER (FP) PO SCH ×2 (10:14→17:06)
[2017-06-14] MEDS: NICOTINE 14 MG/24 HOURS TOPICAL PATCH TD SCH (10:14)
[2017-06-14] MEDS: PRENATAL VITAMINS W/ FOLIC ACID TABLET (FP) PO SCH (10:15)
[2017-06-14] MEDS: LIDOCAINE 5% TOPICAL PATCH TP SCH (10:15)
[2017-06-14] MEDS: NICOTINE POLACRILEX 2 MG GUM BUC PRN (10:15)
[2017-06-14] MEDS: ACETAMINOPHEN 325 MG TABLET (FP) PO PRN (10:16)
[2017-06-14] MEDS: SUVOREXANT 10 MG TABLET PO PRN (22:15)
[2017-06-14] MEDS: MELATONIN 5 MG TABLETS PO PRN (22:16)
[2017-06-14] MEDS: THIAMINE HCL 100 MG TABLET (FP) PO SCH (22:17)
[2017-06-14] MEDS: LIDOCAINE PATCH REMOVAL MC SCH (22:28)
[2017-06-15] MEDS: GABAPENTIN 100 MG CAPSULE (FP) PO SCH ×3 (06:30→21:47)
[2017-06-15] MEDS: IBUPROFEN 400 MG TABLET (FP) PO PRN ×3 (06:31→21:48)
[2017-06-15] MEDS: hydrOXYzine PAMOATE 50 MG CAPSULE (FP) PO PRN ×4 (06:34→21:47)
[2017-06-15] MEDS: POTASSIUM CHLORIDE TABS 20 MEQ TABLET.ER (FP) PO SCH ×2 (10:30→17:03)
[2017-06-15] MEDS: PRENATAL VITAMINS W/ FOLIC ACID TABLET (FP) PO SCH (10:31)
[2017-06-15] MEDS: LIDOCAINE 5% TOPICAL PATCH TP SCH (10:31)
[2017-06-15] MEDS: NICOTINE 14 MG/24 HOURS TOPICAL PATCH TD SCH (10:31)
[2017-06-15] MEDS: ACETAMINOPHEN 325 MG TABLET (FP) PO PRN (10:32)
[2017-06-15] MEDS: THIAMINE HCL 100 MG TABLET (FP) PO SCH (21:47)
[2017-06-15] MEDS: SUVOREXANT 10 MG TABLET PO PRN (21:48)
[2017-06-15] MEDS: LIDOCAINE PATCH REMOVAL MC SCH (22:00)
[2017-06-16] MEDS: hydrOXYzine PAMOATE 50 MG CAPSULE (FP) PO PRN ×4 (06:36→21:38)
[2017-06-16] MEDS: GABAPENTIN 100 MG CAPSULE (FP) PO SCH ×3 (06:37→21:35)
[2017-06-16] MEDS: IBUPROFEN 400 MG TABLET (FP) PO PRN ×3 (06:37→23:00)
[2017-06-16] MEDS: NICOTINE 14 MG/24 HOURS TOPICAL PATCH TD SCH (10:15)
[2017-06-16] MEDS: LIDOCAINE 5% TOPICAL PATCH TP SCH (10:15)
[2017-06-16] MEDS: PRENATAL VITAMINS W/ FOLIC ACID TABLET (FP) PO SCH (10:15)
[2017-06-16] MEDS: ACETAMINOPHEN 325 MG TABLET (FP) PO PRN ×2 (10:17→16:51)
[2017-06-16] MEDS: POTASSIUM CHLORIDE TABS 20 MEQ TABLET.ER (FP) PO SCH ×2 (10:17→17:02)
[2017-06-16] MEDS: THIAMINE HCL 100 MG TABLET (FP) PO SCH (21:35)
[2017-06-16] MEDS: LIDOCAINE PATCH REMOVAL MC SCH (21:36)
[2017-06-16] MEDS: MELATONIN 5 MG TABLETS PO PRN (21:38)
[2017-06-16] MEDS: SUVOREXANT 10 MG TABLET PO PRN (23:00)
[2017-06-17] MEDS: hydrOXYzine PAMOATE 50 MG CAPSULE (FP) PO PRN ×5 (06:39→22:03)
[2017-06-17] MEDS: GABAPENTIN 100 MG CAPSULE (FP) PO SCH ×3 (06:39→22:02)
[2017-06-17] MEDS: IBUPROFEN 400 MG TABLET (FP) PO PRN ×4 (06:40→22:01)
[2017-06-17] MEDS: LIDOCAINE 5% TOPICAL PATCH TP SCH (10:25)
[2017-06-17] MEDS: NICOTINE 14 MG/24 HOURS TOPICAL PATCH TD SCH (10:25)
[2017-06-17] MEDS: POTASSIUM CHLORIDE TABS 20 MEQ TABLET.ER (FP) PO SCH ×2 (10:25→17:04)
[2017-06-17] MEDS: PRENATAL VITAMINS W/ FOLIC ACID TABLET (FP) PO SCH (10:25)
[2017-06-17] MEDS: ACETAMINOPHEN 325 MG TABLET (FP) PO PRN (19:03)
[2017-06-17] MEDS: THIAMINE HCL 100 MG TABLET (FP) PO SCH (22:01)
[2017-06-17] MEDS: SUVOREXANT 10 MG TABLET PO PRN (22:02)
[2017-06-17] MEDS: MELATONIN 5 MG TABLETS PO PRN (22:02)
[2017-06-17] MEDS: LIDOCAINE PATCH REMOVAL MC SCH (22:03)
[2017-06-18] MEDS: GABAPENTIN 100 MG CAPSULE (FP) PO SCH ×3 (06:05→21:37)
[2017-06-18] MEDS: IBUPROFEN 400 MG TABLET (FP) PO PRN ×3 (06:05→21:37)
[2017-06-18] MEDS: hydrOXYzine PAMOATE 50 MG CAPSULE (FP) PO PRN ×4 (06:05→21:38)
[2017-06-18] MEDS: LIDOCAINE 5% TOPICAL PATCH TP SCH (10:12)
[2017-06-18] MEDS: NICOTINE 14 MG/24 HOURS TOPICAL PATCH TD SCH (10:12)
[2017-06-18] MEDS: POTASSIUM CHLORIDE TABS 20 MEQ TABLET.ER (FP) PO SCH ×2 (10:12→17:01)
[2017-06-18] MEDS: ACETAMINOPHEN 325 MG TABLET (FP) PO PRN (10:12)
[2017-06-18] MEDS: PRENATAL VITAMINS W/ FOLIC ACID TABLET (FP) PO SCH (10:12)
[2017-06-18] MEDS: SUVOREXANT 10 MG TABLET PO PRN (21:37)
[2017-06-18] MEDS: LIDOCAINE PATCH REMOVAL MC SCH (21:39)
[2017-06-18] MEDS: THIAMINE HCL 100 MG TABLET (FP) PO SCH (21:39)
[2017-06-19] MEDS: IBUPROFEN 400 MG TABLET (FP) PO PRN ×3 (06:27→21:39)
[2017-06-19] MEDS: hydrOXYzine PAMOATE 50 MG CAPSULE (FP) PO PRN ×3 (06:27→14:59)
[2017-06-19] MEDS: GABAPENTIN 100 MG CAPSULE (FP) PO SCH ×3 (06:28→21:37)
[2017-06-19] MEDS: POTASSIUM CHLORIDE TABS 20 MEQ TABLET.ER (FP) PO SCH ×2 (10:08→18:00)
[2017-06-19] MEDS: NICOTINE 14 MG/24 HOURS TOPICAL PATCH TD SCH (10:08)
[2017-06-19] MEDS: PRENATAL VITAMINS W/ FOLIC ACID TABLET (FP) PO SCH (10:08)
[2017-06-19] MEDS: ACETAMINOPHEN 325 MG TABLET (FP) PO PRN (10:08)
[2017-06-19] MEDS: LIDOCAINE 5% TOPICAL PATCH TP SCH (10:11)
[2017-06-19] MEDS: SUVOREXANT 10 MG TABLET PO PRN (21:37)
[2017-06-19] MEDS: THIAMINE HCL 100 MG TABLET (FP) PO SCH (21:37)
[2017-06-19] MEDS: LIDOCAINE PATCH REMOVAL MC SCH (21:40)
[2017-06-20] MEDS: IBUPROFEN 400 MG TABLET (FP) PO PRN ×3 (06:39→21:34)
[2017-06-20] MEDS: GABAPENTIN 100 MG CAPSULE (FP) PO SCH ×3 (06:39→21:34)
[2017-06-20] MEDS: hydrOXYzine PAMOATE 50 MG CAPSULE (FP) PO PRN ×4 (06:39→21:34)
[2017-06-20] MEDS: PRENATAL VITAMINS W/ FOLIC ACID TABLET (FP) PO SCH (10:15)
[2017-06-20] MEDS: LIDOCAINE 5% TOPICAL PATCH TP SCH (10:15)
[2017-06-20] MEDS: ACETAMINOPHEN 325 MG TABLET (FP) PO PRN (10:15)
[2017-06-20] MEDS: POTASSIUM CHLORIDE TABS 20 MEQ TABLET.ER (FP) PO SCH ×2 (10:15→17:40)
[2017-06-20] MEDS: NICOTINE 14 MG/24 HOURS TOPICAL PATCH TD SCH (10:15)
[2017-06-20] MEDS: MELATONIN 5 MG TABLETS PO PRN (21:33)
[2017-06-20] MEDS: THIAMINE HCL 100 MG TABLET (FP) PO SCH (21:33)
[2017-06-20] MEDS: SUVOREXANT 10 MG TABLET PO PRN (21:34)
[2017-06-20] MEDS: LIDOCAINE PATCH REMOVAL MC SCH (21:52)
[2017-06-21] MEDS: IBUPROFEN 400 MG TABLET (FP) PO PRN ×3 (05:29→22:00)
[2017-06-21] MEDS: hydrOXYzine PAMOATE 50 MG CAPSULE (FP) PO PRN ×4 (05:54→21:59)
[2017-06-21] MEDS: GABAPENTIN 100 MG CAPSULE (FP) PO SCH ×3 (05:54→21:59)
[2017-06-21] MEDS: ACETAMINOPHEN 325 MG TABLET (FP) PO PRN (10:07)
[2017-06-21] MEDS: NICOTINE 14 MG/24 HOURS TOPICAL PATCH TD SCH (10:07)
[2017-06-21] MEDS: POTASSIUM CHLORIDE TABS 20 MEQ TABLET.ER (FP) PO SCH ×2 (10:07→20:02)
[2017-06-21] MEDS: LIDOCAINE 5% TOPICAL PATCH TP SCH (10:07)
[2017-06-21] MEDS: PRENATAL VITAMINS W/ FOLIC ACID TABLET (FP) PO SCH (10:07)
[2017-06-21] MEDS: LIDOCAINE PATCH REMOVAL MC SCH (21:58)
[2017-06-21] MEDS: THIAMINE HCL 100 MG TABLET (FP) PO SCH (21:59)
[2017-06-21] MEDS: SUVOREXANT 10 MG TABLET PO PRN (21:59)
[2017-06-21] MEDS: MELATONIN 5 MG TABLETS PO PRN (21:59)
[2017-06-22] MEDS: GABAPENTIN 100 MG CAPSULE (FP) PO SCH ×3 (06:29→21:49)
[2017-06-22] MEDS: IBUPROFEN 400 MG TABLET (FP) PO PRN ×3 (06:29→21:46)
[2017-06-22] MEDS: hydrOXYzine PAMOATE 50 MG CAPSULE (FP) PO PRN ×3 (06:30→14:28)
[2017-06-22] MEDS: NICOTINE 14 MG/24 HOURS TOPICAL PATCH TD SCH (10:12)
[2017-06-22] MEDS: LIDOCAINE 5% TOPICAL PATCH TP SCH (10:12)
[2017-06-22] MEDS: PRENATAL VITAMINS W/ FOLIC ACID TABLET (FP) PO SCH (10:12)
[2017-06-22] MEDS: ACETAMINOPHEN 325 MG TABLET (FP) PO PRN ×2 (10:12→16:57)
[2017-06-22] MEDS: POTASSIUM CHLORIDE TABS 20 MEQ TABLET.ER (FP) PO SCH ×2 (10:12→17:04)
[2017-06-22] MEDS: THIAMINE HCL 100 MG TABLET (FP) PO SCH (21:46)
[2017-06-22] MEDS: LIDOCAINE PATCH REMOVAL MC SCH (21:48)
[2017-06-22] MEDS: MELATONIN 5 MG TABLETS PO PRN (21:48)
[2017-06-22] MEDS: SUVOREXANT 10 MG TABLET PO PRN (21:48)
[2017-06-23] MEDS: ACETAMINOPHEN 325 MG TABLET (FP) PO PRN ×3 (03:52→17:43)
[2017-06-23] MEDS: GABAPENTIN 100 MG CAPSULE (FP) PO SCH ×3 (06:40→22:57)
[2017-06-23] MEDS: IBUPROFEN 400 MG TABLET (FP) PO PRN ×3 (06:40→22:58)
[2017-06-23] MEDS: hydrOXYzine PAMOATE 50 MG CAPSULE (FP) PO PRN ×4 (06:41→22:58)
[2017-06-23] MEDS: NICOTINE 14 MG/24 HOURS TOPICAL PATCH TD SCH (10:35)
[2017-06-23] MEDS: PRENATAL VITAMINS W/ FOLIC ACID TABLET (FP) PO SCH (10:35)
[2017-06-23] MEDS: POTASSIUM CHLORIDE TABS 20 MEQ TABLET.ER (FP) PO SCH ×2 (10:35→17:43)
[2017-06-23] MEDS: LIDOCAINE 5% TOPICAL PATCH TP SCH (10:36)
[2017-06-23] MEDS: THIAMINE HCL 100 MG TABLET (FP) PO SCH (22:57)
[2017-06-23] MEDS: MELATONIN 5 MG TABLETS PO PRN (22:59)
[2017-06-23] MEDS: SUVOREXANT 10 MG TABLET PO PRN (22:59)
[2017-06-23] MEDS: LIDOCAINE PATCH REMOVAL MC SCH (23:17)
[2017-06-24] MEDS: hydrOXYzine PAMOATE 50 MG CAPSULE (FP) PO PRN ×4 (03:23→21:52)
[2017-06-24] MEDS: ACETAMINOPHEN 325 MG TABLET (FP) PO PRN ×2 (03:23→15:03)
[2017-06-24] MEDS: GABAPENTIN 100 MG CAPSULE (FP) PO SCH ×3 (06:31→21:53)
[2017-06-24] MEDS: IBUPROFEN 400 MG TABLET (FP) PO PRN ×2 (09:18→17:12)
[2017-06-24] MEDS: POTASSIUM CHLORIDE TABS 20 MEQ TABLET.ER (FP) PO SCH ×2 (09:18→17:20)
[2017-06-24] MEDS: NICOTINE 14 MG/24 HOURS TOPICAL PATCH TD SCH (09:19)
[2017-06-24] MEDS: LIDOCAINE 5% TOPICAL PATCH TP SCH (09:19)
[2017-06-24] MEDS: PRENATAL VITAMINS W/ FOLIC ACID TABLET (FP) PO SCH (09:19)
--- NOTE | 2017-06-24 09:36 | PN ---
Psychiatric Progress Note Vital Signs: Vital Signs Period Temp Pulse Resp BP Sys/Funk Pulse Ox Last 24 Hr 97.8 F 88 18 109/75 Date of Session: 06/24/17 Chief Complaint:: Discharge Note HPI: Patient addressing Alcohol and Cannabis Dependence comorbid with Nicotine Dependence, Substance-Induced Mood Disorder and Substance-Induced Sleep Disorder ROS: Sciatica Current Medications: Active Medications Generic Name Dose Route Start Last Admin Trade Name Freq PRN Reason Stop Dose Admin Acetaminophen 650 mg 06/07/17 10:52 06/24/17 03:23 Tylenol - PO 650 mg Q4H PRN Administration FEVER Al Hydroxide/Mg Hydroxide 30 ml 06/07/17 10:52 Mylanta Oral Suspension - PO Q6H PRN DYSPEPSIA Eucalyptus/Menthol/Phenol/Sorbitol 1 each 06/07/17 10:52 Cepastat Lozenge - MM Q4H PRN SORE THROAT Gabapentin 200 mg 06/14/17 17:15 06/24/17 06:31 Neurontin - PO 200 mg TID TREY Administration Guaifenesin 10 ml 06/07/17 10:52 Robitussin Dm - PO Q6H PRN COUGH Hydroxyzine Pamoate 50 mg 06/07/17 10:52 06/24/17 03:23 Vistaril - PO 50 mg Q4H PRN Administration AGITATION Ibuprofen 800 mg 06/10/17 13:04 06/24/17 09:18 Motrin - PO 800 mg Q8H PRN Administration FEVER Lidocaine 1 patch 06/09/17 15:10 06/24/17 09:19 Lidoderm Patch - TP 1 patch DAILY TREY Administration Loperamide HCl 4 mg 06/07/17 10:52 Imodium - PO Q6H PRN DIARRHEA Magnesium Citrate 300 ml 06/07/17 10:52 Citroma - PO Q48H PRN CONSTIPATION Magnesium Hydroxide 30 ml 06/07/17 10:52 Milk Of Magnesia - PO DAILY PRN CONSTIPATION Melatonin 5 mg 06/07/17 22:00 06/23/17 22:59 Melatonin PO 5 mg HS PRN Administration INSOMNIA Miscellaneous 1 each 06/09/17 22:00 06/23/17 23:17 Lidoderm Patch Removal MC Not Given DAILY@2200 TREY Nicotine 14 mg 06/07/17 11:45 06/24/17 09:19 Nicoderm Patch - TD 14 mg DAILY TREY Administration Nicotine Polacrilex 2 mg 06/07/17 10:52 06/14/17 10:15 Nicorette Gum - BUC 2 mg Q2H PRN Administration NICOTINE REPLACEMENT RX Potassium Chloride 20 meq 06/07/17 11:45 06/24/17 09:18 K-Dur - PO 20 meq BID@1000,1800 TREY Administration Multivit/Folic Acid/Iron 1 tab 06/08/17 10:00 06/24/17 09:19 Vitamins (Sjr) - PO 1 tab DAILY TREY Administration Pseudoephedrine/Triprolidine 1 combo 06/07/17 10:52 Actifed - PO TID PRN NASAL CONGESTION Suvorexant 10 mg 06/22/17 22:00 06/23/17 22:59 Belsomra PO 10 mg HS PRN Administration INSOMNIA Thiamine HCl 100 mg 06/07/17 22:00 06/23/17 22:57 Vitamin B1 - PO 100 mg HS TREY Administration Current Side Effect: No Lab tests ordered: Yes Lab tests reviewed: Yes Provider note:: Patient has completed this program today. He has met his treatment goals and will continue to address his issues n outpatient treatment at [facility]. He responded well to Belsomra as needed for insomnia and Vistaril As needed for anxiety. He is stable for discharge today Total face to face time:: 35 Mental Status Exam - Mental Status Exam Alert and Oriented to: Time, Place, Person Cognitive Function: Fair Patient Appearance: Well Groomed Mood: Hopeful, Euthymic Affect: Appropriate Patient Behavior: Cooperative Speech Pattern: Clear Voice Loudness: Normal Thought Process: Intact, Goal Oriented Thought Disorder: Not Present Hallucinations: Denies Suicidal Ideation: Denies Homicidal Ideation: Denies Insight/Judgement: Fair Sleep: Fair Appetite: Good Muscle strength/Tone: Normal Gait/Station: Normal Psychiatric Treatment Plan - Problem List (1) Alcohol dependence Current Visit: Yes (2) Cannabis abuse Current Visit: Yes (3) Nicotine dependence Current Visit: No Qualifiers: (4) Substance induced mood disorder Current Visit: Yes (5) Substance-induced sleep disorder Current Visit: Yes (6) Sciatica Current Visit: No Qualifiers: Laterality: right Qualified Code(s): M54.31 - Sciatica, right side Initial treatment plan: Patient is discharged today and referred to [facility] for outpatient treatment
[2017-06-24] MEDS: THIAMINE HCL 100 MG TABLET (FP) PO SCH (21:52)
[2017-06-24] MEDS: SUVOREXANT 10 MG TABLET PO PRN (21:52)
[2017-06-24] MEDS: MELATONIN 5 MG TABLETS PO PRN (21:52)
[2017-06-24] MEDS: LIDOCAINE PATCH REMOVAL MC SCH (21:54)
[2017-06-25] MEDS: IBUPROFEN 400 MG TABLET (FP) PO PRN ×3 (01:14→22:19)
[2017-06-25] MEDS: hydrOXYzine PAMOATE 50 MG CAPSULE (FP) PO PRN ×4 (06:30→18:55)
[2017-06-25] MEDS: GABAPENTIN 100 MG CAPSULE (FP) PO SCH ×3 (06:30→22:18)
[2017-06-25] MEDS: ACETAMINOPHEN 325 MG TABLET (FP) PO PRN ×3 (06:31→18:55)
[2017-06-25] MEDS: LIDOCAINE 5% TOPICAL PATCH TP SCH (10:20)
[2017-06-25] MEDS: PRENATAL VITAMINS W/ FOLIC ACID TABLET (FP) PO SCH (10:20)
[2017-06-25] MEDS: NICOTINE 14 MG/24 HOURS TOPICAL PATCH TD SCH (10:20)
[2017-06-25] MEDS: POTASSIUM CHLORIDE TABS 20 MEQ TABLET.ER (FP) PO SCH ×2 (10:20→17:33)
--- NOTE | 2017-06-25 17:01 | PN ---
S Progress Note Note: Psychiatry Attending's cone classifier tender note : Called to renew order for belsomra 10 mg po hs prn. Done.Chart reviewed : no report of side effects. Dose confirmed.
[2017-06-25] MEDS: SUVOREXANT 10 MG TABLET PO PRN (22:18)
[2017-06-25] MEDS: THIAMINE HCL 100 MG TABLET (FP) PO SCH (22:18)
[2017-06-25] MEDS: MELATONIN 5 MG TABLETS PO PRN (22:18)
[2017-06-25] MEDS: LIDOCAINE PATCH REMOVAL MC SCH (22:22)
[2017-06-26] MEDS: IBUPROFEN 400 MG TABLET (FP) PO PRN ×3 (06:34→22:05)
[2017-06-26] MEDS: hydrOXYzine PAMOATE 50 MG CAPSULE (FP) PO PRN ×3 (06:34→22:03)
[2017-06-26] MEDS: GABAPENTIN 100 MG CAPSULE (FP) PO SCH ×3 (06:34→22:02)
[2017-06-26] MEDS: PRENATAL VITAMINS W/ FOLIC ACID TABLET (FP) PO SCH (10:52)
[2017-06-26] MEDS: POTASSIUM CHLORIDE TABS 20 MEQ TABLET.ER (FP) PO SCH ×2 (10:52→17:38)
[2017-06-26] MEDS: LIDOCAINE 5% TOPICAL PATCH TP SCH (10:53)
[2017-06-26] MEDS: NICOTINE 14 MG/24 HOURS TOPICAL PATCH TD SCH (10:53)
--- NOTE | 2017-06-26 18:29 | PN ---
S Progress Note Note: Motrin 800mg q8h prn for pt's pain to leg. [place]
[2017-06-26] MEDS: LIDOCAINE PATCH REMOVAL MC SCH (22:02)
[2017-06-26] MEDS: THIAMINE HCL 100 MG TABLET (FP) PO SCH (22:02)
[2017-06-26] MEDS: MELATONIN 5 MG TABLETS PO PRN (22:05)
[2017-06-26] MEDS: SUVOREXANT 10 MG TABLET PO PRN (22:05)
[2017-06-26] MEDS: NICOTINE POLACRILEX 2 MG GUM BUC PRN (22:06)
[2017-06-27] MEDS: hydrOXYzine PAMOATE 50 MG CAPSULE (FP) PO PRN ×4 (06:25→22:00)
[2017-06-27] MEDS: IBUPROFEN 400 MG TABLET (FP) PO PRN ×3 (06:25→22:01)
[2017-06-27] MEDS: GABAPENTIN 100 MG CAPSULE (FP) PO SCH ×3 (06:25→22:00)
[2017-06-27] MEDS: LIDOCAINE 5% TOPICAL PATCH TP SCH (10:16)
[2017-06-27] MEDS: PRENATAL VITAMINS W/ FOLIC ACID TABLET (FP) PO SCH (10:16)
[2017-06-27] MEDS: NICOTINE 14 MG/24 HOURS TOPICAL PATCH TD SCH (10:16)
[2017-06-27] MEDS: POTASSIUM CHLORIDE TABS 20 MEQ TABLET.ER (FP) PO SCH ×2 (10:16→17:02)
[2017-06-27] MEDS: ACETAMINOPHEN 325 MG TABLET (FP) PO PRN (10:16)
[2017-06-27] MEDS: THIAMINE HCL 100 MG TABLET (FP) PO SCH (22:00)
[2017-06-27] MEDS: MELATONIN 5 MG TABLETS PO PRN (22:00)
[2017-06-27] MEDS: SUVOREXANT 10 MG TABLET PO PRN (22:01)
[2017-06-27] MEDS: LIDOCAINE PATCH REMOVAL MC SCH (22:10)
[2017-06-28] MEDS: IBUPROFEN 400 MG TABLET (FP) PO PRN ×3 (06:20→22:03)
[2017-06-28] MEDS: hydrOXYzine PAMOATE 50 MG CAPSULE (FP) PO PRN ×5 (06:20→22:03)
[2017-06-28] MEDS: GABAPENTIN 100 MG CAPSULE (FP) PO SCH ×3 (06:20→22:00)
[2017-06-28] MEDS: PRENATAL VITAMINS W/ FOLIC ACID TABLET (FP) PO SCH (10:16)
[2017-06-28] MEDS: ACETAMINOPHEN 325 MG TABLET (FP) PO PRN ×2 (10:16→17:52)
[2017-06-28] MEDS: POTASSIUM CHLORIDE TABS 20 MEQ TABLET.ER (FP) PO SCH ×2 (10:16→17:50)
[2017-06-28] MEDS: NICOTINE 14 MG/24 HOURS TOPICAL PATCH TD SCH (10:16)
[2017-06-28] MEDS: LIDOCAINE 5% TOPICAL PATCH TP SCH (10:17)
[2017-06-28] MEDS ORDERED: SUVOREXANT 10 MG TABLET PO PRN (22:00)
[2017-06-28] MEDS: LIDOCAINE PATCH REMOVAL MC SCH (22:00)
[2017-06-28] MEDS: THIAMINE HCL 100 MG TABLET (FP) PO SCH (22:00)
[2017-06-28] MEDS: MELATONIN 5 MG TABLETS PO PRN (22:03)
[2017-06-29] MEDS: hydrOXYzine PAMOATE 50 MG CAPSULE (FP) PO PRN ×4 (06:41→18:22)
[2017-06-29] MEDS: IBUPROFEN 400 MG TABLET (FP) PO PRN ×3 (06:41→21:55)
[2017-06-29] MEDS: GABAPENTIN 100 MG CAPSULE (FP) PO SCH ×3 (06:42→21:55)
--- NOTE | 2017-06-29 08:16 | PN ---
Psychiatric Progress Note Vital Signs: Vital Signs Period Temp Pulse Resp BP Sys/Funk Pulse Ox Last 24 Hr 98.1 F 83 18-18 103/74 Date of Session: 06/29/17 Chief Complaint:: Discharge Note HPI: Patient addressing Alcohol and Cannabis Dependence comorbid with Nicotine Dependence, Substance-Induced Mood Disorder and Substance-Induced Sleep Disorder ROS: Sciatica Current Medications: Active Medications Generic Name Dose Route Start Last Admin Trade Name Freq PRN Reason Stop Dose Admin Acetaminophen 650 mg 06/07/17 10:52 06/28/17 17:52 Tylenol - PO 650 mg Q4H PRN Administration FEVER Al Hydroxide/Mg Hydroxide 30 ml 06/07/17 10:52 Mylanta Oral Suspension - PO Q6H PRN DYSPEPSIA Eucalyptus/Menthol/Phenol/Sorbitol 1 each 06/07/17 10:52 Cepastat Lozenge - MM Q4H PRN SORE THROAT Gabapentin 200 mg 06/14/17 17:15 06/29/17 06:42 Neurontin - PO 200 mg TID TREY Administration Guaifenesin 10 ml 06/07/17 10:52 Robitussin Dm - PO Q6H PRN COUGH Hydroxyzine Pamoate 50 mg 06/07/17 10:52 06/29/17 06:41 Vistaril - PO 50 mg Q4H PRN Administration AGITATION Ibuprofen 800 mg 06/26/17 18:19 06/29/17 06:41 Motrin - PO 800 mg Q8H PRN Administration PAIN LEVEL 6-10 Lidocaine 1 patch 06/09/17 15:10 06/28/17 10:17 Lidoderm Patch - TP 1 patch DAILY TREY Administration Loperamide HCl 4 mg 06/07/17 10:52 Imodium - PO Q6H PRN DIARRHEA Magnesium Citrate 300 ml 06/07/17 10:52 Citroma - PO Q48H PRN CONSTIPATION Magnesium Hydroxide 30 ml 06/07/17 10:52 Milk Of Magnesia - PO DAILY PRN CONSTIPATION Melatonin 5 mg 06/07/17 22:00 06/28/17 22:03 Melatonin PO 5 mg HS PRN Administration INSOMNIA Miscellaneous 1 each 06/09/17 22:00 06/28/17 22:00 Lidoderm Patch Removal MC 1 each DAILY@2200 TREY Administration Nicotine 14 mg 06/07/17 11:45 06/28/17 10:16 Nicoderm Patch - TD 14 mg DAILY TREY Administration Nicotine Polacrilex 2 mg 06/07/17 10:52 06/26/17 22:06 Nicorette Gum - BUC 2 mg Q2H PRN Administration NICOTINE REPLACEMENT RX Potassium Chloride 20 meq 06/07/17 11:45 06/28/17 17:50 K-Dur - PO 20 meq BID@1000,1800 TREY Administration Multivit/Folic Acid/Iron 1 tab 06/08/17 10:00 06/28/17 10:16 Vitamins (Sjr) - PO 1 tab DAILY TREY Administration Pseudoephedrine/Triprolidine 1 combo 06/07/17 10:52 Actifed - PO TID PRN NASAL CONGESTION Suvorexant 10 mg 06/28/17 22:00 Belsomra PO HS PRN INSOMNIA Thiamine HCl 100 mg 06/07/17 22:00 06/28/17 22:00 Vitamin B1 - PO 100 mg HS TREY Administration Current Side Effect: No Lab tests ordered: Yes Lab tests reviewed: Yes Provider note:: Patient will completed this program on 06/30/17. He has met his treatment goals and will continue to address his issues in outpatient treatment at [place] at [address] [place] [address]. Told conventional mortgage underwriter that from participation n this program, he has learned to stay busy and focus on himself. He responded well to Belsomra as needed for insomnia and Vistaril As needed for anxiety. He is stable for discharge on 06/30/17 Mental Status Exam - Mental Status Exam Alert and Oriented to: Time, Place, Person Cognitive Function: Fair Patient Appearance: Well Groomed Mood: Hopeful, Euthymic Affect: Appropriate Patient Behavior: Cooperative Speech Pattern: Clear Voice Loudness: Normal, Limited Variation Thought Process: Goal Oriented Thought Disorder: Not Present Hallucinations: Denies Suicidal Ideation: Denies Homicidal Ideation: Denies Insight/Judgement: Fair Sleep: Fair Appetite: Good Muscle strength/Tone: Normal Gait/Station: Normal Psychiatric Treatment Plan - Problem List (1) Alcohol dependence Current Visit: Yes (2) Cannabis abuse Current Visit: Yes (3) Nicotine dependence Current Visit: No Qualifiers: (4) Substance induced mood disorder Current Visit: Yes (5) Substance-induced sleep disorder Current Visit: Yes (6) Sciatica Current Visit: No Qualifiers: Laterality: right Qualified Code(s): M54.31 - Sciatica, right side Initial treatment plan: Patient will be discharged tomorrow and referred to [place] for outpatient treatment
[2017-06-29] MEDS: NICOTINE 14 MG/24 HOURS TOPICAL PATCH TD SCH (10:30)
[2017-06-29] MEDS: PRENATAL VITAMINS W/ FOLIC ACID TABLET (FP) PO SCH (10:30)
[2017-06-29] MEDS: LIDOCAINE 5% TOPICAL PATCH TP SCH (10:30)
[2017-06-29] MEDS: POTASSIUM CHLORIDE TABS 20 MEQ TABLET.ER (FP) PO SCH ×2 (10:30→18:22)
[2017-06-29] MEDS: ACETAMINOPHEN 325 MG TABLET (FP) PO PRN ×2 (10:31→18:22)
[2017-06-29] MEDS: THIAMINE HCL 100 MG TABLET (FP) PO SCH (21:55)
[2017-06-29] MEDS: MELATONIN 5 MG TABLETS PO PRN (21:56)
[2017-06-29] MEDS: LIDOCAINE PATCH REMOVAL MC SCH (23:07)
[2017-06-30] MEDS: ACETAMINOPHEN 325 MG TABLET (FP) PO PRN (01:43)
[2017-06-30] MEDS: hydrOXYzine PAMOATE 50 MG CAPSULE (FP) PO PRN ×2 (01:43→06:41)
[2017-06-30] MEDS: GABAPENTIN 100 MG CAPSULE (FP) PO SCH (06:39)
[2017-06-30] MEDS: IBUPROFEN 400 MG TABLET (FP) PO PRN (06:41)
[2017-06-30 06:59] VITALS: BP 100/72; PULSE 98; TEMP 97.8
== END 2017-06-30 08:25 | disposition home or self-care (01) | DRG 895 ==
LOC: YASAS 08:25 → Y3W 11:05
PROVIDERS: ADMIT Psychiatry & Neurology Psychiatry; ATTEND Psychiatry & Neurology Psychiatry
PROC: HZ42ZZZ Group Counseling for Substance Abuse Treatment, Cognitive-Behavioral (ICD-10-PCS; principal; 2017-06-07)
DX: F10.230 Alcohol dependence with withdrawal, uncomplicated (principal); F19.282 Other psychoactive substance dependence with psychoactive substance-induced sleep disorder; F12.20 Cannabis dependence, uncomplicated; F17.210 Nicotine dependence, cigarettes, uncomplicated; F19.24 Other psychoactive substance dependence with psychoactive substance-induced mood disorder; E87.6 Hypokalemia; M54.31 Sciatica, right side; M25.551 Pain in right hip
CPT/HCPCS: 36415; 80053; 87389